=== PATIENT | female | born 1965 | race Two or more races ===

== ENCOUNTER 2020-07-29 20:07 | Emergency (ER) | payer OTHER ==
[~2020-07-29] VITALS: Ht 154.9 cm; Wt 59.0 kg
--- NOTE | 2020-07-29 20:10 | NUR ---
C/O NECK PAIN, DIFFICULTY SWALLOWING, SWELLING WITH REDNESS X3 DAYS. PT ON BACTRIM X3 DAYS. HX. THYROIDECTOMY 07/08/2020; PT TO BED 8, PLACED ON MONITOR, -SOB, SAT ABOVE 97%,SPEAKING IN FULL SENTENCES, PT AWAKE AND ALERT, PENDING ER PROVIDER DANYEL
--- NOTE | 2020-07-29 20:45 | NUR ---
DR. GIO POWELL PER [facility] PRICE ORDER.
[2020-07-29] MEDS ORDERED: DEXAMETHASONE SOD PHOSPHATE 10 MG/ML VIAL ONE (20:51)
[2020-07-29] MEDS ORDERED: CIPROFLOXACIN IV RTU 200 ML IV ONE (20:51)
[2020-07-29] MEDS ORDERED: VANCOMYCIN 1 GM VIAL ONE (20:51)
[2020-07-29] MEDS ORDERED: VANCOMYCIN 1 GM in IV D5W 250 ML IV ONE (21:00)
[2020-07-29] MEDS ORDERED: IV NS 0.9% 500 ML BAG IV ONE (21:00)
[2020-07-29] MEDS ORDERED: DEXAMETHASONE SOD PHOSPHATE 10 MG/ML VIAL IV ONE (21:00)
[2020-07-29] MEDS ORDERED: CIPROFLOXACIN IV RTU 400 MG in PREMIX 1 EA IV SCH (21:00)
[2020-07-29 21:05] LABS: BASOPHILS # (AUTO) 0.1 /CMM (0.0-0.2); BASOPHILS % (AUTO) 0.4 % (0.0-2.0); EOSINOPHILS % (AUTO) 1.9 % (0.0-6.0); HEMATOCRIT 31 % (33-45); HEMOGLOBIN 9.4 g/dL (11.5-14.8); LYMPHOCYTES # (AUTO) 1.1 /CMM (0.8-4.8); LYMPHOCYTES % (AUTO) 5.3 % (20.0-44.0); MEAN CORPUSCULAR HGB CONC 31 g/dl (31.0-36.0); MEAN CORPUSCULAR VOLUME 76 fL (82-100); MONOCYTES # (AUTO) 1.4 /CMM (0.1-1.30); MONOCYTES % (AUTO) 6.4 % (2.0-12.0); NEUTROPHILS # (AUTO) 18.6 /CMM (1.8-8.9); PLATELET COUNT (AUTO) 601 /CMM (150-450); RED BLOOD CELL COUNT(AUTO) 4.01 MIL/uL (4.0-5.2); WHITE BLOOD COUNT (AUTO) 21.6 K/uL (4.3-11.0)
--- NOTE | 2020-07-29 21:10 | NUR ---
DR. GIO POWELL PER [facility] PRICE ORDER.
[2020-07-29 21:19] LABS: ALANINE AMINOTRANSFERASE 14 U/L (12-78); ALBUMIN 2.9 g/dL (3.4-5.0); ALKALINE PHOSPHATASE 95 U/L (46-116); ASPARTATE AMINOTRANSFERASE 12 U/L (15-37); BILIRUBIN,DIRECT 0.1 mg/dL (0.0-0.2); BILIRUBIN,TOTAL 0.3 mg/dL (0.2-1.0); TOTAL PROTEIN, SERUM 8.4 g/dL (6.4-8.2)
[2020-07-29 21:37] LABS: CALCIUM, SERUM 9.1 mg/dL (8.5-10.1); CARBON DIOXIDE 27 mmol/L (21-32); CHLORIDE 93 mmol/L (98-107); CREATININE 0.7 mg/dL (0.6-1.3); GLUCOSE 222 mg/dL (74-106); POTASSIUM 4.6 mmol/L (3.5-5.1); SODIUM SERUM 129 mmol/L (136-145); UREA NITROGEN, BLOOD 6 mg/dL (7-18)
[2020-07-29] MEDS ORDERED: CT SWABBABLE VALVE TRANS SET 1 EA INFUS.SET MC ONE (21:47)
[2020-07-29] MEDS ORDERED: IV NS 0.9% 250 ML IV ONE (21:47)
[2020-07-29] MEDS ORDERED: IOHEXOL-300 100 ML VIAL IV ONE (21:47)
--- NOTE | 2020-07-29 21:50 | NUR ---
REC'D NEG COVID RESULTS. AWARE
--- NOTE | 2020-07-29 21:53 | NUR ---
DR. GIO POWELL
--- NOTE | 2020-07-29 22:00 | NUR ---
CLINICAL INFO PROVIDED TO EDUCATION COURSES SALES REPRESENTATIVE LUTHER. PHONE # .
--- NOTE | 2020-07-29 22:08 | NUR ---
PT TO CT
--- NOTE | 2020-07-29 22:20 | NUR ---
PER ADMITTING [facility] WILL ARRANGE PEER TO PEER WITH DR DORMAN FOR TRANSFER
--- NOTE | 2020-07-29 23:46 | NUR ---
PAGED DR. POWERS
[2020-07-30 00:48] LABS: APPEARANCE,URINE CLEAR (CLEAR); BILIRUBIN,URINE NEGATIVE (NEGATIVE); BLOOD, URINE NEGATIVE Ery/uL (NEGATIVE); COLOR,URINE YELLOW (YELLOW); KETONES,URINE NEGATIVE (NEGATIVE); LEUKOCYTE ESTERASE ,URINE NEGATIVE (NEGATIVE); NITRITE, URINE NEGATIVE (NEGATIVE); PH,URINE 6.5 (5.0-8.0); PROTEIN,URINE NEGATIVE (NEGATIVE); UGLUCOSE NEGATIVE (NEGATIVE); UROBILINOGEN,URINE 0.2 EU/dL (0.2)
--- NOTE | 2020-07-30 01:04 | NUR ---
JUAN LIVESTOCK DEALER CALLED STATES DR. WALLACE WILL CALL BACK REGARDING PEER TO PEER REPORT.
--- NOTE | 2020-07-30 01:11 | NUR ---
DR. DORMAN SPEAKING WITH DR. WALLACE
--- NOTE | 2020-07-30 01:26 | NUR ---
VONDA FROM [facility] WITH TRANSPORT INFO AND NUMBER FOR REPORT: [facility] ROOM [id number] #REPORT [phone] EXT [phone] [facility] ETA [phone]
[2020-07-30 01:35] VITALS: BP 102/56
--- NOTE | 2020-07-30 01:43 | NUR ---
REPORT GIVEN TO MARIVEL CASTORENA AT [facility]
--- NOTE | 2020-07-30 02:07 | NUR ---
REPORT GIVEN TO [facility] FOR TRANSPORTATION MIRI. PT TRANSFERRED TO [facility] IN STABLE CONDITION
== END 2020-07-30 02:26 | disposition short-term general hospital (02) ==
LOC: ER 20:15
DX: T81.44XA Sepsis following a procedure, initial encounter (principal); T81.49XA Infection following a procedure, other surgical site, initial encounter; A41.9 Sepsis, unspecified organism; L03.221 Cellulitis of neck; R65.20 Severe sepsis without septic shock; C73 Malignant neoplasm of thyroid gland; C79.51 Secondary malignant neoplasm of bone; E87.2 Acidosis; R50.9 Fever, unspecified; Z20.828 Contact with and (suspected) exposure to other viral communicable diseases; R00.0 Tachycardia, unspecified; E87.1 Hypo-osmolality and hyponatremia; R91.8 Other nonspecific abnormal finding of lung field
CPT/HCPCS: 36415; 70491; 71045; 80048; 80076; 81001; 83605 ×2; 84145; 84484; 85025; 85730; 87040 ×2; 87086; 87426; 93005; 96365 ×2; 96375; 99291; A4216; C9803; J0744 ×2; J1100; J3370; J7030; J7050; Q9967; 81000-TC

== ENCOUNTER 2020-08-15 20:25 | Emergency (ER) | payer OTHER ==
[~2020-08-15] VITALS: Ht 154.9 cm; Wt 45.4 kg
--- NOTE | 2020-08-15 20:31 | NUR ---
PT AAOX3, BIBRA 78 FROM HOME FOR C/O "INABILITY TO EAT X 4 DAYS. PT IS ON HOSPICE CARE BUT PER RA WAS TAKEN OFF AND FAMILY REQUESTING GT PLACEMENT. NO ACUTE DISTRESS NOTED. PLACED ON MONITOR AND PULSE OX. VITALS STABLE. HAS TRACH. 5L SAT 100%. MD AT BEDSIDE FOR EVAL.
--- NOTE | 2020-08-15 20:44 | NUR ---
FLARE MAKER AT BEDSIDE
--- NOTE | 2020-08-15 20:44 | NUR ---
COVID SWAB SENT TO LAB
--- NOTE | 2020-08-15 20:56 | NUR ---
RADIOLOGY AT BEDSIDE FOR XRAY
[2020-08-15 21:04] LABS: BASOPHILS % (AUTO) 0.1 % (0.0-2.0); HEMATOCRIT 32 % (33-45); LYMPHOCYTES # (AUTO) 0.9 /CMM (0.8-4.8); LYMPHOCYTES % (AUTO) 2.4 % (20.0-44.0); MEAN CORPUSCULAR HGB CONC 31 g/dl (31.0-36.0); MEAN CORPUSCULAR VOLUME 81 fL (82-100); MONOCYTES # (AUTO) 1.2 /CMM (0.1-1.30); NEUTROPHILS # (AUTO) 37.1 /CMM (1.8-8.9); NEUTROPHILS % (AUTO) 93.5 % (43.0-81.0); PLATELET COUNT (AUTO) 233 /CMM (150-450); RED BLOOD CELL COUNT(AUTO) 3.98 MIL/uL (4.0-5.2)
[2020-08-15 21:07] LABS: WHITE BLOOD COUNT (AUTO) 39.6 K/uL (4.3-11.0)
[2020-08-15] MEDS ORDERED: PIPERACILLIN /TAZOBACTAM 3.375 G in IV D5W 50 ML IV ONE (21:30)
[2020-08-15] MEDS ORDERED: VANCOMYCIN 1 GM in IV D5W 250 ML IV ONE (21:30)
[2020-08-15] MEDS ORDERED: IV NS 0.9% 1,000 ML IV ONE (21:30)
--- NOTE | 2020-08-15 21:30 | NUR ---
photographic hand developer at bedside for blood cultures.
[2020-08-15 21:35] LABS: CALCIUM, SERUM 8.3 mg/dL (8.5-10.1); CREATININE 0.4 mg/dL (0.6-1.3); POTASSIUM 3.2 mmol/L (3.5-5.1)
[2020-08-15] MEDS ORDERED: VANCOMYCIN 1 GM VIAL ONE (21:39)
[2020-08-15] MEDS ORDERED: PIPERACILLIN /TAZOBACTAM 3.375 G VIAL IV ONE (21:39)
[2020-08-15 21:43] LABS: BAND % (MANUAL) 1 % (0.0-5.0); EOSINOPHILS % (MANUAL) 2 % (0-4); LYMPHOCYTES % (MANUAL) 5 % (16-48); MONOCYTES % (MANUAL) 1 % (0-11.0); NEUTROPHILS % (MANUAL) 91 (42-76)
--- NOTE | 2020-08-15 21:47 | NUR ---
COVID RESULTS RECEIVED FROM LAB (-)
--- NOTE | 2020-08-15 22:11 | NUR ---
RT AT BEDSIDE FOR TRACH CARE.
--- NOTE | 2020-08-15 22:32 | NUR ---
DR DORMAN ON THE PHONE WITH KATHY NOYOLA
--- NOTE | 2020-08-15 22:56 | NUR ---
URINE COLLECTED AND SENT TO LAB
[2020-08-15 23:35] LABS: APPEARANCE,URINE CLEAR (CLEAR); BILIRUBIN,URINE SMALL (NEGATIVE); BLOOD, URINE NEGATIVE Ery/uL (NEGATIVE); COLOR,URINE YELLOW (YELLOW); KETONES,URINE 40 (NEGATIVE); LEUKOCYTE ESTERASE ,URINE NEGATIVE (NEGATIVE); NITRITE, URINE NEGATIVE (NEGATIVE); PH,URINE 6.5 (5.0-8.0); PROTEIN,URINE NEGATIVE (NEGATIVE); UGLUCOSE NEGATIVE (NEGATIVE); UROBILINOGEN,URINE 0.2 EU/dL (0.2)
[2020-08-15 23:44] LABS: BACTERIA,URINE Few /HPF (None Seen); MUCUS,URINE Moderate /LPF (None Seen); RBC,URINE 0-2 /HPF (0-2); SQUAMOUS EPITHELIAL CELL,UR Few /HPF (None Seen)
[2020-08-15 23:49] LABS: BILIRUBIN,DIRECT 0.3 mg/dL (0.0-0.2); BILIRUBIN,TOTAL 0.7 mg/dL (0.2-1.0)
--- NOTE | 2020-08-16 00:37 | NUR ---
RECEIVED A CALL FROM [facility] WITH [facility]. PER MARIANA, PT IS GONNA GO TO THE URGENT CARE AT [facility]. NO ACCEPTING DOCTOR KATHY COULD NOT GET A HOLD OF THE SHIFT STACKER. # FOR REPORT: [phone] (GIVE REPORT TO CHARGE NURSE). ROBERT IN ADMITING HAS ACCEPTED THE PT. [facility] WITH REGAL: [phone]
--- NOTE | 2020-08-16 00:56 | NUR ---
REPORT GIVEN TO GEOVANNA AT [facility]
--- NOTE | 2020-08-16 02:45 | NUR ---
Pt accepted to [facility] by Dr Salas. # for report [phone]
--- NOTE | 2020-08-16 02:50 | NUR ---
[facility] eta 45-60 minutes.
[2020-08-16 03:00] VITALS: BP 105/58
--- NOTE | 2020-08-16 03:29 | NUR ---
REPOERT GIVEN TO CAMELIA AT [facility] . PT IS GOING TO RM [phone]
--- NOTE | 2020-08-16 04:02 | NUR ---
REPORT GIVEN TO PARAMEDICS FROM [employer] [facility]
== END 2020-08-16 04:20 | disposition short-term general hospital (02) ==
LOC: ER 20:26
DX: R62.7 Adult failure to thrive (principal); Z68.1 Body mass index [BMI] 19.9 or less, adult; E87.6 Hypokalemia; R13.10 Dysphagia, unspecified; R53.1 Weakness; D64.9 Anemia, unspecified; R00.0 Tachycardia, unspecified; Z93.0 Tracheostomy status; C73 Malignant neoplasm of thyroid gland; C79.9 Secondary malignant neoplasm of unspecified site; D72.829 Elevated white blood cell count, unspecified; Z20.828 Contact with and (suspected) exposure to other viral communicable diseases
CPT/HCPCS: 36415; 71045; 80048; 81001; 82247; 82248; 83605 ×2; 85025; 85610; 87040 ×2; 87426; 93005; 96365; 96375; 99285; A4623; C9803; J2543 ×2; J3370; J7030; J7060; 31720; 81000-TC

== ENCOUNTER 2020-08-26 16:53 | Emergency (ER) | payer OTHER ==
[~2020-08-26] VITALS: Ht 152.4 cm; Wt 63.5 kg
--- NOTE | 2020-08-26 17:02 | NUR ---
PT BIBRA FROM HOME TO ER BED 01N C/O ABDOMINAL PAIN X 3 DAYS. PTIS POINTING TO HER R SIDE SIDE OF ABDOMEN. ARRIVE WITH TRACHEOSTOMY W/ NOTED SWELLING AROUND THE SITE.PLACED ON MONITOR. TACHY AVIATION MAINTENANCE TECHNICIAN BUT AFEBRILE. AWAITING MD MONTAÑO.
--- NOTE | 2020-08-26 17:06 | NUR ---
DR CARNES AT BEDSIDE FOR EVAL.
--- NOTE | 2020-08-26 17:12 | NUR ---
I SPOKE TO THE PATIENT'S SON - CODE STATUS - NO CARDIAC COMPRESSION - IN THE EVENT THAT THE PATIENT'S HEART BEAT STOPS - YAIMA VELASQUEZ - PATIENT'S SON 29 YEARS OLD.
[2020-08-26] MEDS ORDERED: MORPHINE SULFATE INJ 4 MG/ML DISP.SYRIN ONE (17:25)
[2020-08-26] MEDS ORDERED: ONDANSETRON HCL/PF 4 MG/2 ML VIAL ONE (17:25)
[2020-08-26] MEDS: IV NS 0.9% 1,000 ML BAG IV ONE ×2 (17:35→22:00)
[2020-08-26] MEDS: ONDANSETRON HCL/PF 4 MG/2 ML VIAL IVP ONE (17:35)
[2020-08-26] MEDS: MORPHINE SULFATE INJ 2 MG/ML DISP.SYRIN IV ONE ×2 (17:35→22:05)
[2020-08-26 17:36] LABS: BASOPHILS # (AUTO) 0.1 /CMM (0.0-0.2); BASOPHILS % (AUTO) 0.3 % (0.0-2.0); EOSINOPHILS % (AUTO) 1.8 % (0.0-6.0); HEMATOCRIT 26 % (33-45); HEMOGLOBIN 7.9 g/dL (11.5-14.8); LYMPHOCYTES # (AUTO) 0.7 /CMM (0.8-4.8); LYMPHOCYTES % (AUTO) 1.9 % (20.0-44.0); MEAN CORPUSCULAR HGB CONC 31 g/dl (31.0-36.0); MEAN CORPUSCULAR VOLUME 81 fL (82-100); MONOCYTES # (AUTO) 2.4 /CMM (0.1-1.30); MONOCYTES % (AUTO) 7.1 % (2.0-12.0); NEUTROPHILS % (AUTO) 88.9 % (43.0-81.0); PLATELET COUNT (AUTO) 248 /CMM (150-450); RED BLOOD CELL COUNT(AUTO) 3.19 MIL/uL (4.0-5.2)
--- NOTE | 2020-08-26 17:42 | NUR ---
PT TO RADIOLOGY FOR ABDOMINAL CT SCAN [facility].
[2020-08-26 17:48] LABS: CALCIUM, SERUM 9.3 mg/dL (8.5-10.1); CARBON DIOXIDE 29 mmol/L (21-32); CHLORIDE 94 mmol/L (98-107); CREATININE 0.4 mg/dL (0.6-1.3); GLUCOSE 132 mg/dL (74-106); POTASSIUM 4.2 mmol/L (3.5-5.1); SODIUM SERUM 131 mmol/L (136-145); UREA NITROGEN, BLOOD 10 mg/dL (7-18)
[2020-08-26 17:51] LABS: ALANINE AMINOTRANSFERASE 13 U/L (12-78); ALKALINE PHOSPHATASE 143 U/L (46-116); ASPARTATE AMINOTRANSFERASE 14 U/L (15-37); BILIRUBIN,DIRECT 0.1 mg/dL (0.0-0.2); BILIRUBIN,TOTAL 0.3 mg/dL (0.2-1.0); LIPASE 34 U/L (73-393); TOTAL PROTEIN, SERUM 6.1 g/dL (6.4-8.2)
[2020-08-26 18:09] LABS: ALBUMIN 1.4 g/dL (3.4-5.0)
[2020-08-26 18:24] LABS: APPEARANCE,URINE Slightly Cloudy (CLEAR); BILIRUBIN,URINE Negative (NEGATIVE); BLOOD, URINE Negative Ery/uL (NEGATIVE); COLOR,URINE Yellow (YELLOW); KETONES,URINE Negative (NEGATIVE); LEUKOCYTE ESTERASE ,URINE Negative (NEGATIVE); NITRITE, URINE Negative (NEGATIVE); PH,URINE 6.5 (5.0-8.0); PROTEIN,URINE Negative (NEGATIVE); UGLUCOSE Negative (NEGATIVE); UROBILINOGEN,URINE 0.2 EU/dL (0.2)
[2020-08-26 18:33] LABS: WHITE BLOOD COUNT (AUTO) 33.8 K/uL (4.3-11.0)
--- NOTE | 2020-08-26 18:37 | NUR ---
U/S TECH AT BEDSIDE FOR PELVIC ULTRASOUND.
--- NOTE | 2020-08-26 19:40 | NUR ---
REPORT GIVEN TO JOSE LUIS KC FOR MIRI.
[2020-08-26 19:49] LABS: BAND % (MANUAL) 4 % (0.0-5.0); EOSINOPHILS % (MANUAL) 1 % (0-4); LYMPHOCYTES % (MANUAL) 4 % (16-48); MONOCYTES % (MANUAL) 11 % (0-11.0)
[2020-08-26 19:58] LABS: NEUTROPHILS % (MANUAL) 80 (42-76)
--- NOTE | 2020-08-26 20:26 | NUR ---
CALLED SON FOR CLEARANCE COORDINATOR
--- NOTE | 2020-08-26 20:48 | NUR ---
SPOKE WITH FREDERICK KEY SANDER KANE ([phone]) REGARDING TRANSPORTATION BACK HOME. WILL CALL BACK WITH ETA
--- NOTE | 2020-08-26 21:56 | NUR ---
[facility] ETA [id number]
[2020-08-26] MEDS ORDERED: MORPHINE SULFATE INJ 2 MG/ML DISP.SYRIN ONE (22:01)
--- NOTE | 2020-08-26 23:10 | NUR ---
Patient discharged to home in stable condition. Written and verbal after care instructions given. Patient verbalizes understanding of instruction.
[2020-08-27 00:03] VITALS: BP 129/67
== END 2020-08-27 00:04 | disposition home or self-care (01) ==
LOC: ER 16:54
DX: D25.9 Leiomyoma of uterus, unspecified (principal); R10.9 Unspecified abdominal pain; R91.1 Solitary pulmonary nodule; Z93.0 Tracheostomy status; Z85.850 Personal history of malignant neoplasm of thyroid
CPT/HCPCS: 36415; 74176; 76856; 80048; 80076; 81001; 83690; 84484; 85025; 96361; 96374; 96375; 96376; 99285; J2270 ×2; J2405; J7030 ×2; 81000-TC